=== PATIENT | female | born 1950 | race Caucasian/White ===

== ENCOUNTER → 2016-12-22 | Outpatient (CLI) | payer BC ==
[~2016-12-22] MED LIST: ASCO500T16 PO; LISI-725 PO; LORA-741 PO; VENL150C PO
[2016-12-22 14:00] LABS: ALT/SGPT 24 U/L (12-78); BLOOD UREA NITROGEN 21 mg/dl (7-18); BUN/CREATININE RATIO 22.5 (10-20); CALCIUM 9.9 mg/dl (8.5-10.1); CARBON DIOXIDE 24 mmol/L (21-32); CHLORIDE 105 mmol/L (98-107); CHOLESTEROL 199 mg/dl (0-200); CREATININE 0.93 mg/dl (0.60-1.20); GLUCOSE 102 mg/dl (70-99); POTASSIUM 4.5 mmol/L (3.5-5.1); SODIUM 141 mmol/L (136-145); TRIGLYCERIDES 198 mg/dl (0-150); VERY LOW DENSITY LIPOPROT CALC 40 mg/dl
[2016-12-22 14:01] LABS: ESTIMATED AVERAGE GLUCOSE 97 mg/dl; HA1C FLAG Normal (Normal)
[2016-12-22 14:09] LABS: ALB/GLOB RATIO 1.3 (0.9-2); ALKALINE PHOSPHATASE 89 U/L (45-117); AST/SGOT 23 U/L (15-37); CHOLESTEROL/HDL RATIO 4.7; HDL CHOLESTEROL 42 mg/dl
== END | disposition home or self-care (01) ==
LOC: C.LABSPEC 12:37
PROVIDERS: ATTEND Internal Medicine
DX: R73.9 Hyperglycemia, unspecified (principal); I10 Essential (primary) hypertension; E78.5 Hyperlipidemia, unspecified; E03.9 Hypothyroidism, unspecified; E55.9 Vitamin D deficiency, unspecified

== ENCOUNTER → 2017-02-23 | Outpatient (CLI) | payer BC ==
--- NOTE | 2017-02-23 16:25 | MAMMOGRAPHY REPORT ---
BILATERAL DIGITAL SCREENING MAMMOGRAM WITH CAD: 02/23/2017 CLINICAL HISTORY: Routine screening. TECHNIQUE: Bilateral CC and MLO views were obtained. Current study was also evaluated with a Comput er Aided Detection (CAD) system. COMPARISON: Comparison is made to exams dated: 02/19/2016 mammogram, 02/02/2015 mammogram, 01/31/2014 mammogram, 12/23/2011 mammogram, 06/03/2010 mammogram - [facility], and 07/13/2008. BREAST COMPOSITION: There are scattered areas of fibroglandular density in both breasts. FINDINGS: The parenchymal pattern is unchanged. There are stable intramammary lymph nodes in each upper outer quadrant. No developing mass, architectural distortion or cluster of suspicious microca lcifications is seen. IMPRESSION: ACR BI-RADS CATEGORY 2: BENIGN There is no mammographic evidence of malignancy. A 1 year screening mammogram is recommended. The p atient will receive written notification of the results. Approximately 10% of breast cancers are not detected with mammography. A negative mammographic repor t should not delay biopsy if a clinically suggestive mass is present. Sarahy Figueroa M.D. ay/:02/23/2017 15:38:18 Paint Striping Machine Operator: Fernando MULLER(Alfonso)([place]), [facility] letter sent: Normal 1/2 BI-RADS Code: ACR BI-RADS Category 2: Benign
== END | disposition home or self-care (01) ==
LOC: C.MAMM 08:20
PROVIDERS: ATTEND Internal Medicine
DX: Z12.31 Encounter for screening mammogram for malignant neoplasm of breast (principal)

== ENCOUNTER → 2017-03-05 | Outpatient (CLI) | payer BC | END | disposition home or self-care (01) | LOC: C.LABSPEC 14:38 | PROVIDERS: ATTEND Internal Medicine | DX: E03.9 Hypothyroidism, unspecified (principal) ==

== ENCOUNTER → 2017-06-23 | Outpatient (CLI) | payer BC ==
[2017-06-23 13:10] LABS: BASO % 0.8 %; BASO ABS # 0.03 K/uL (0-0.2); COMPLETE YES; EOS % 3.1 %; HEMATOCRIT 43.9 % (37-47); IG% 0.3 %; LYMPH % 32.5 %; LYMPH ABS # 1.26 K/uL (1.2-3.4); MEAN CELL VOLUME 86.9 fL (80-100); MEAN CORPUSCULAR HEMOGLOBIN 28.7 pg (25-34); MONO % 7.7 %; NEUT % 55.6 %; PLATELET COUNT 201 K/uL (130-400); RED BLOOD COUNT 5.05 M/uL (4.2-5.4); WHITE BLOOD COUNT 3.88 K/uL (4.8-10.8)
[2017-06-23 13:33] LABS: ALT/SGPT 30 U/L (12-78); AST/SGOT 26 U/L (15-37); BLOOD UREA NITROGEN 18 mg/dl (7-18); BUN/CREATININE RATIO 24.3 (10-20); CALCIUM 9.5 mg/dl (8.5-10.1); CARBON DIOXIDE 25 mmol/L (21-32); CHLORIDE 108 mmol/L (98-107); CHOLESTEROL 167 mg/dl (0-200); CREATININE 0.72 mg/dl (0.60-1.20); GLUCOSE 109 mg/dl (70-99); POTASSIUM 4.1 mmol/L (3.5-5.1); SODIUM 141 mmol/L (136-145)
[2017-06-23 13:35] LABS: ALB/GLOB RATIO 1.1 (0.9-2); ALKALINE PHOSPHATASE 92 U/L (45-117); CHOLESTEROL/HDL RATIO 4.9; HDL CHOLESTEROL 34 mg/dl; TRIGLYCERIDES 187 mg/dl (0-150); VERY LOW DENSITY LIPOPROT CALC 37 mg/dl
[2017-06-23 13:36] LABS: ESTIMATED AVERAGE GLUCOSE 100 mg/dl; HA1C FLAG Normal (Normal)
== END | disposition home or self-care (01) ==
LOC: C.LABSPEC 12:27
PROVIDERS: ATTEND Internal Medicine
DX: R73.9 Hyperglycemia, unspecified (principal); I10 Essential (primary) hypertension; E78.5 Hyperlipidemia, unspecified; E55.9 Vitamin D deficiency, unspecified

== ENCOUNTER → 2017-12-31 | Outpatient (CLI) | payer BC ==
[2017-12-31 13:28] LABS: BLOOD UREA NITROGEN 18 mg/dl (7-18); CALCIUM 9.7 mg/dl (8.5-10.1); CARBON DIOXIDE 26 mmol/L (21-32); CHOLESTEROL 158 mg/dl (0-200); CREATININE 0.81 mg/dl (0.60-1.20); GLUCOSE 98 mg/dl (70-99); POTASSIUM 4.1 mmol/L (3.5-5.1); SODIUM 136 mmol/L (136-145)
[2017-12-31 13:38] LABS: HEMOGLOBIN A1C 5.2 % (4.5-5.6); LDL CHOLESTEROL (DIRECT) 109 mg/dl
== END | disposition home or self-care (01) ==
LOC: C.LABSPEC 12:32
PROVIDERS: ATTEND Internal Medicine
DX: I10 Essential (primary) hypertension (principal); E78.5 Hyperlipidemia, unspecified; R73.9 Hyperglycemia, unspecified; E03.9 Hypothyroidism, unspecified; E55.9 Vitamin D deficiency, unspecified

== ENCOUNTER → 2018-02-25 | Outpatient (CLI) | payer BC ==
--- NOTE | 2018-02-25 14:56 | MAMMOGRAPHY REPORT ---
BILATERAL DIGITAL SCREENING MAMMOGRAM TOMOSYNTHESIS WITH CAD: 02/25/2018 CLINICAL HISTORY: Routine screening. Patient has no complaints. TECHNIQUE: Breast tomosynthesis in addition to standard 2D mammography was performed. Current study was also evaluated with a Computer Aided Detection (CAD) system. COMPARISON: Comparison is made to exams dated: 02/23/2017 mammogram, 02/19/2016 mammogram, 02/02/2015 m ammogram, 01/31/2014 mammogram, 12/23/2011 mammogram, and 06/03/2010 mammogram - [facility]. BREAST COMPOSITION: There are scattered areas of fibroglandular density in both breasts. FINDINGS: No suspicious masses, calcifications, or areas of architectural distortion are noted in ei ther breast. There has been no significant interval change compared to prior exams. IMPRESSION: ACR BI-RADS CATEGORY 1: NEGATIVE There is no mammographic evidence of malignancy. A 1 year screening mammogram is recommended. The pa tient will receive written notification of the results. Approximately 10% of breast cancers are not detected with mammography. A negative mammographic report should not delay biopsy if a clinically suggestive mass is present. Sara Mayo M.D. ah/:02/25/2018 09:40:10 Manager [place]: Soniya MULLER,Alfonso, M, [facility] letter sent: Normal 1/2 BI-RADS Code: ACR BI-RADS Category 1: Negative
== END | disposition home or self-care (01) ==
LOC: C.MAMM 08:21
PROVIDERS: ATTEND Internal Medicine
DX: Z12.31 Encounter for screening mammogram for malignant neoplasm of breast (principal)

== ENCOUNTER → 2018-06-28 | Outpatient (CLI) | payer BC ==
[~2018-06-28] MED LIST changes: -VENL150C PO; +VENL150C2 PO
[2018-06-28 18:54] LABS: BLOOD UREA NITROGEN 18 mg/dl (7-18); CALCIUM 9.7 mg/dl (8.5-10.1); CARBON DIOXIDE 25 mmol/L (21-32); CHOLESTEROL 164 mg/dl (0-200); CREATININE 0.74 mg/dl (0.60-1.20); GLUCOSE 98 mg/dl (70-99); LDL CHOLESTEROL (DIRECT) 115 mg/dl; POTASSIUM 4.3 mmol/L (3.5-5.1); SODIUM 139 mmol/L (136-145)
[2018-06-29 06:09] LABS: HEMOGLOBIN A1C 5.3 % (4.5-5.6)
== END | disposition home or self-care (01) ==
LOC: C.LABSPEC 17:21
PROVIDERS: ATTEND Internal Medicine
DX: E03.9 Hypothyroidism, unspecified (principal); R73.9 Hyperglycemia, unspecified; I10 Essential (primary) hypertension; E78.5 Hyperlipidemia, unspecified; E55.9 Vitamin D deficiency, unspecified

== ENCOUNTER 2024-05-06 08:30 | Observation (INO) ==
--- NOTE | 2024-04-07 12:38 | PAT Medication Instructions ---
Medication Instructions Date of Service April 07, 2024 Home Medications Medication Instructions Recorded epinephrine 0.3 mg/0.3 mL 0.3 mg (0.3 mL) IM Q4H PRN 02/21/23 injection, auto-injector (EpiPen anaphylaxis #2 ea 2-Faheem) lisinopril 20 mg tablet 20 mg PO QAM #90 tabs 07/20/23 levothyroxine 75 mcg tablet 75 mcg PO QAM #90 tabs 07/27/23 lorazepam 0.5 mg tablet 0.5 mg PO TID PRN Anxiety #90 tabs 07/27/23 buspirone 5 mg tablet 5 mg PO BID #180 tabs 09/17/23 semaglutide 0.25 mg or 0.5 mg (2 0.25 mg (0.368 mL) subcut .COMPLEX 04/01/24 mg/3 mL) subcutaneous pen injector weight loss #3 mL (Ozempic) vitamin E 268 mg (400 unit) capsule 400 unit PO QAM cholecalciferol (vitamin D3) 50 mcg (2,000 unit) capsule (Vitamin D3) 4,000 unit PO QAM epinephrine 0.3 mg/0.3 mL injection, auto-injector (EpiPen 2-Faheem) 0.3 mg (0.3 mL) IM Q4H PRN anaphylaxis lisinopril 20 mg tablet 20 mg PO QAM levothyroxine 75 mcg tablet 75 mcg PO QAM lorazepam 0.5 mg tablet 0.5 mg PO TID PRN Anxiety buspirone 5 mg tablet 5 mg PO BID B-complex with vitamin C 1 tab PO QAM calcium carbonate 600 mg PO QAM semaglutide 0.25 mg or 0.5 mg (2 mg/3 mL) subcutaneous pen injector (Ozempic) 0.25 mg (0.368 mL) subcut .COMPLEX weight loss rosuvastatin 10 mg tablet 10 mg PO QAM venlafaxine 150 mg capsule,extended release 24 hr 150 mg PO QAM Continue as directed epinephrine 0.3 mg/0.3 mL injection, auto-injector (EpiPen 2-Faheem) 0.3 mg (0.3 mL) IM Q4H PRN anaphylaxis (if needed) STOP taking 2 weeks before surgery vitamin E 268 mg (400 unit) capsule 400 unit PO QAM STOP taking 7 days before surgery semaglutide 0.25 mg or 0.5 mg (2 mg/3 mL) subcutaneous pen injector (Ozempic) 0.25 mg (0.368 mL) subcut .COMPLEX weight loss DO NOT take the morning of surgery cholecalciferol (vitamin D3) 50 mcg (2,000 unit) capsule (Vitamin D3) 4,000 unit PO QAM lisinopril 20 mg tablet 20 mg PO QAM B-complex with vitamin C 1 tab PO QAM calcium carbonate 600 mg PO QAM Take morning of surgery With a small sip of water, OTHERWISE NOTHING TO EAT OR DRINK AFTER MIDNIGHT: levothyroxine 75 mcg tablet 75 mcg PO QAM lorazepam 0.5 mg tablet 0.5 mg PO TID PRN Anxiety (if needed) buspirone 5 mg tablet 5 mg PO BID rosuvastatin 10 mg tablet 10 mg PO QAM venlafaxine 150 mg capsule,extended release 24 hr 150 mg PO QAM Take evening before surgery lorazepam 0.5 mg tablet 0.5 mg PO TID PRN Anxiety (if needed) buspirone 5 mg tablet 5 mg PO BID Other Notes If you have any questions please call us at [phone] or [phone] or [phone] or [phone]
--- NOTE | 2024-04-12 13:51 | Anesthesiology Consultation ---
Date of Service April 12, 2024 Assessment & Plan (1) Encounter for pre-operative examination: Chart Review Chart Review: Acceptable Risk for Surgery and Patient seen in Pre Admission Testing - Patient is NOT an ideal OPJ candidate (currently 23 hour obs) - Ozempic instructions: Patient takes on (Saturdays). Patient informed at PAT visit to stop 7 days prior to surgery- voiced understanding. Patient takes for weight loss. Last dose of Ozempic scheduled 04/23/24- will be off Ozempic x 13 days by DOS on 05/06/24 Per PAT appt on 04/12/24, no recent illness/disease exposures, illness related symptoms, or recent illness/disease positive tests. Will leave to surgeon's discretion if preop Covid testing needed Teaching & Discussion Pre-Anesthesia Teaching/Discussion Notes: Instructed NPO after midnight before surgery,except medications with 15 cc of water. Medication instructions provided according to the PAT guidelines. History Surgery Operation Date: 05/06/24 10:10 Proposed Procedures p Left Total Knee Arthroplasty - Aaron Recinos DO Height/Weight Height: 5 ft 3 in Weight: 90.8 kg Allergies Allergy/AdvReac Type Severity Reaction Status Date / Time Iodinated Contrast Media Allergy Intermediate severe Verified 04/12/24 13:44 rash Medications Home Medications Medication Instructions Recorded Confirmed Last Taken vitamin E 268 mg (400 unit) capsule 400 unit PO QAM 06/30/18 04/07/24 07/16/18 cholecalciferol (vitamin D3) 50 4,000 unit PO QAM 01/22/23 04/07/24 Unknown mcg (2,000 unit) capsule (Vitamin D3) epinephrine 0.3 mg/0.3 mL 0.3 mg (0.3 mL) IM Q4H PRN 02/21/23 04/07/24 Unknown injection, auto-injector (EpiPen anaphylaxis #2 ea 2-Faheem) lisinopril 20 mg tablet 20 mg PO QAM #90 tabs 07/20/23 04/07/24 Unknown levothyroxine 75 mcg tablet 75 mcg PO QAM #90 tabs 07/27/23 04/07/24 Unknown lorazepam 0.5 mg tablet 0.5 mg PO TID PRN Anxiety #90 tabs 07/27/23 04/07/24 Unknown buspirone 5 mg tablet 5 mg PO BID #180 tabs 09/17/23 04/07/24 Unknown B-complex with vitamin C 1 tab PO QAM 04/01/24 04/07/24 Unknown calcium carbonate 600 mg PO QAM 04/01/24 04/07/24 Unknown semaglutide 0.25 mg or 0.5 mg (2 0.25 mg (0.368 mL) subcut .COMPLEX 04/01/24 04/07/24 Unknown mg/3 mL) subcutaneous pen injector weight loss #3 mL (Ozempic) rosuvastatin 10 mg tablet 10 mg PO QAM 04/07/24 04/07/24 Unknown venlafaxine 150 mg 150 mg PO QAM 04/07/24 04/07/24 Unknown capsule,extended release 24 hr Past Medical History Medical History (Updated 04/13/24 @ 10:38 by Edita Velazquez PA-C) Anxiety 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" (had bone marrow biopsy) - Resolved on own incidentally- no further issues since 2010 - No longer follows with heme Degenerative arthritis of knee, bilateral Depression GERD without esophagitis well controlled and stable Hiatal hernia History of COVID-19 06/2022--mild symptoms, no symptoms now History of fracture of finger 02/2023 from syncopal episode--splinted/resolved- left fifth digit - still unable to fully extend History of syncope 02/15/2023--pt states she was worked up at the [facility]; also had event monitor/ECHO, unknown cause- no issues since that time Hyperlipidemia Hypertension Hypothyroidism Osteopenia Exercise / Class Metabolic Activity III < 4 Walking/Shop/Light housework (one flight of stairs- no chest pain, mild SOB (goes slow due to knee pain) ) Past Family History Family History Mother Palpitations Father Myocardial infarction Malignant pleural mesothelioma Brother Lung cancer Sister Cervix cancer Bladder cancer Other No family history of adverse response to anesthesia Denies family history of Ovarian cancer Prostate cancer Breast cancer Colorectal cancer Past Surgical History Surgical History H/O dilation and curettage H/O shoulder replacement History of abdominoplasty History of colonoscopy History of esophagogastroduodenoscopy (EGD) History of hysteroscopy History of lymph node excision 2010 - EXCISION; SUBSEQUENT BLEEDING/REPAIR History of repair of rotator cuff RIGHT 2000 History of reverse total replacement of right shoulder joint 2017 Hx of ectopic RUPTURED Past Anesthesia History No Hx of Anesthesia Complications and No Family Hx of Anesthesia Complications History of PONV No Hx of PONV and No Hx of Motion Sickness Social History Smoking Status: Former smoker Do You Dip or Chew Tobacco: No Smoking End Date: quit 40+yrs ago Hx Alcohol Use: Yes (wine cooler) Alcohol type: other alcohol intake frequency: holidays/special occasions only Hx Substance Use: No substance use type: does not use Review of Systems Hx of snoring- no witnessed apnea - no hx of sleep study Patient denies chest pain, shortness of breath at rest, cough, wheezing, palpitations. No hx of seizures, stroke, VT. No hx of blood clots or blood transfusions Physical Exam Vital Signs VITALS BP 131/69 P 94 TEMP 97.9 SP02 95% RESP 16 Constitutional no acute distress ENMT Mouth: no TMJ clicking Thyromental Distance: > or= 3.5 Finger Breadths (3.5) Mallampati Class: I (smaller airway) Missing molars Neck + short neck, + thick neck and + limited neck extension Respiratory normal respiratory effort; no respiratory distress Auscultation: lungs clear to auscultation bilaterally; no wheezes Cardiovascular Rate/Rhythm: regular rate and regular rhythm Heart Sounds: no murmur Vessels: no carotid bruit Musculoskeletal Spine: + pain with cervical ROM (mild) Extremities: extremities normal to inspection Psychiatric Orientation: alert Lab Results Anesthesia Preop Results Results Anesthesia Widget: WBC 5.25 K/ul (4.8-10.8) 04/12/24 Hgb 13.3 g/dl (12.0-16.0) 04/12/24 Hct 40.9 % (37.0-47.0) 04/12/24 Plt 176 K/uL (130-400) 04/12/24 Na 138 mmol/L (136-145) 04/12/24 K 3.8 mmol/L (3.5-5.1) 04/12/24 Cl 104 mmol/L (98-107) 04/12/24 CO2 27 mmol/L (21-32) 04/12/24 BUN 29 mg/dl (6-23) H 04/12/24 Creat 0.68 mg/dl (0.6-1.2) 04/12/24 Glucose Level 132 mg/dl (70-99(Fasting)) H 04/12/24 PT 10.4 Seconds (9.0-12.0) 04/12/24 PTT 25 Seconds (21-31) 04/12/24 INR 1.0 (0.9-1.1) 04/12/24 Blood Type O Positive 04/12/24 Antibody Screen NEGATIVE 04/12/24 Testing Electrocardiogram Date: 04/12/24 Findings: + NSR @ (91bpm) Normal EKG per cardio Chest X-Ray Date: 09/23/23 FINDINGS: Right shoulder arthroplasty is incidentally noted. Right upper lobe airspace opacity on chest radiograph August 20, 2023 has resolved. A calcified granuloma within the right lung is present. There is no pneumothorax or pleural effusion. No new sites of consolidation are present. Cardiac size is normal. Mediastinal contours are normal. IMPRESSION: No acute cardiopulmonary findings. Resolution of the right upper lobe pneumonia on prior chest radiograph. Echocardiogram Date: 05/08/23 EF: 60-65% LV Function: normal RWMA: + none Other Findings: + LVH (moderate/concentric) and + diastolic dysfunction (Type I ) Mild AR Mild MR Other Testing Event monitor 04/09/23= Patient monitored for 26 days. Rhythm was sinus throughout. Average HR 83 bpm (range 50 bpm to 120 bpm). No atrial or ventricular ectopy noted. No dysrhythmias. Symptoms of dizziness, heart racing or lightheadedness occurred during sinus rhythm at rates ranging between 72 bpm and 111 bpm, no associated ectopy or dysrhythmias.
[~2024-05-06 08:30] MED LIST changes: -ASCO500T16 PO; +BUPIVACAINE 0.5 % 5 MG/1 ML PF 10ML VIAL ONE; +KETAMINE HCL 10MG/ML SYR ONE; -LISI-725 PO; -LORA-741 PO; +MIDAZOLAM HCL 1 MG/ML 2ML VIAL ONE; +ROPIVACAINE 0.5% 5 MG/ML 30 ML VIAL ONE; -VENL150C2 PO
[2024-05-06] MEDS ORDERED: GLYCOPYRROLATE 0.2 MG/ML VIAL ONE (08:33)
[2024-05-06] MEDS ORDERED: LIDOCAINE 2% 2 ML VIAL/AMP(20MG/ML) INFIL ONE (08:33)
[2024-05-06] MEDS ORDERED: PROPOFOL IV EMULSION 10 MG/ML 100 ML VIAL IV ONE (08:33)
[2024-05-06] MEDS ORDERED: ONDANSETRON INJ 2 MG/ML 2 ML VIAL ONE (08:33)
--- NOTE | 2024-05-06 09:17 | History & Physical Bridge Note ---
Date of Service May 06, 2024 History & Physical Bridge Note I have examined the patient, reviewed the History & Physical and in the interval since the performance of the History & Physical I have noted the following changes of clinical significance: no changes noted
[2024-05-06] MEDS: LR 500ML BOLUS, THEN 15ML/HR IV SCH (09:18)
[2024-05-06] MEDS: GABAPENTIN 300 MG CAP PO SCH (09:20)
[2024-05-06] MEDS: dexAMETHasone**PF** 10 MG/ML VIAL IV SCH (09:20)
[2024-05-06] MEDS: FAMOTIDINE 20 MG TAB PO SCH (09:20)
[2024-05-06] MEDS: LR 60ML/HR IV SCH (09:20)
[2024-05-06] MEDS: ACETAMINOPHEN 500 MG TAB PO SCH ×2 (09:20→17:48)
[2024-05-06] MEDS ORDERED: ONDANSETRON INJ 2 MG/ML 2 ML VIAL IV PRN ×2 (09:51→13:52)
[2024-05-06] MEDS ORDERED: ATROPINE SULFATE 0.1 MG/ML 10ML SYR IV PRN (09:51)
[2024-05-06] MEDS ORDERED: fentaNYL citrate PF 100 MCG/2 ML VIAL IV PRN (09:51)
[2024-05-06] MEDS ORDERED: ePHEDrine sulfate 50 MG/ML AMP IV PRN (09:51)
[2024-05-06] MEDS: TRANEXAMIC ACID 1,000 MG **IV Pre-op IV SCH (09:56)
[2024-05-06] MEDS: ceFAZolin 2000MG 2,000 MG/15 ML SYR IV SCH ×2 (10:15→17:48)
[2024-05-06] MEDS: ORTHO JOINT ANESTHETIC ONE (10:44)
[2024-05-06] MEDS: TRANEXAMIC ACID 1,000 MG **IV Intra-op IV SCH (11:00)
[2024-05-06] MEDS: ROPIV 0.5% 246mg, Ketorolac 30mg, EPINEPHrine 0.5mg in NSS INFIL SCH (11:05)
--- NOTE | 2024-05-06 11:05 | Operative Report ---
PG Post Operative Report Pre & Post Diagnosis Operation Date: 05/06/24 10:00 Pre-Op Diagnosis: Osteoarthritis of left knee Postop diagnosis: Osteoarthritis of the left knee I identified the patient and participated in the time-out.: Yes Procedure Operation Date: 05/06/24 10:00 Actual Procedures p Left Total Knee Arthroplasty(Left) - Aaron Recinos DO Surgeon Aaron Recinos DO Veterinary Technician Instructor Aaron Davis PA-C Estimated Blood Loss 30 Findings Consistent with Post-Op Diagnosis Specimens Left femoral tibial bone Description of Procedure Implants used: I used a Dami Persona total knee arthroplasty system with a size 6 narrow femur, C tibia, 28 oval patella, and a size 10 medial congruent polyethylene bearing. All components were cemented in place with Biomet cement. Margo arrived [facility] for the above procedure. She was seen in the preoperative holding area and the operative extremity was identified and signed. She was given a preoperative antibiotic, TXA, a spinal anesthetic and an adductor nerve block. She was taken back to the operating room and laid on the table in supine position. She was given basic sedation. The operative knee was then prepped and draped in sterile fashion. A timeout was done, and the patient and the operative extremity was properly identified. A midline incision was made directly over the patella. Dissection was taken down to the extensor mechanism. A subvastus arthrotomy was used. The medial retinaculum was released and the fat pad was mostly excised. The knee was flexed and the ACL, PCL, and meniscus were removed. A drill was sent down the center of the femoral canal followed by an intramedullary felicia. Off that felicia a distal femoral cutting block was placed. 9 mm was resected off the distal femur at 5 of valgus. A posterior referencing AP sizing guide was then placed on the distal femur. The femur measured to be a size 6. 2 drill holes were placed in 3 of external rotation. A 4-in-1 cutting block was then impacted into place. Anterior, posterior, and chamfer cuts were then made. The proximal tibia was then exposed. An external tibial alignment guide was placed. A tibial cut guide was then anchored in place and the proximal tibia was then resected. The posterior aspect of the knee was then opened up and any additional meniscus fragments and osteophytes were removed. The tibia measured to be a size C. The tibial plate was then placed in the appropriate rotation and the tibia was drilled and punched. Trial components were then placed. I used a size 10 medial congruent polyethylene insert. The knee was brought through a full range of motion and felt to be stable. The peg holes for the femoral component were then drilled. The patella was then everted and 9 mm was resected off the posterior aspect of the patella. The patella measured to be a size 28 oval. 3 peg holes were then drilled. A trial patella was placed. The knee was once again brought through a full range of motion and felt to be stable. Trial components were then removed. The surrounding soft tissues were injected with 100 cc of an orthopedic pain control cocktail. All components were then cemented into place with Biomet cement. The final polyethylene insert was then snapped into place. Once cement was dry the tourniquet was deflated. Hemost asis was obtained. A dilute betadyne lavage was then done for 3 minutes. The joint was then irrigated with normal saline solution. The subvastus arthrotomy was then closed with #1 Vicryl suture. The skin was closed with 2-0 Vicryl, 3- 0V lock suture, and hal. A soft compressive dressing was placed. She was then transferred to a hospital bed and taken to the postanesthesia care unit in stable condition. She tolerated the procedure well. Aaron Davis PA-C, was present for the entire procedure. He was critical for patient positioning, prepping, draping, retraction exposure, wound closure and application of sterile dressing. I attest to the content of the Intraoperative Record and any orders documented therein. Any exceptions are noted below.
--- NOTE | 2024-05-06 11:40 | XRay Report ---
TWO VIEWS LEFT KNEE CLINICAL HISTORY: Postoperative examination. FINDINGS: AP and crosstable lateral portable views of the left knee are obtained. A left knee arthrop lasty is in near anatomic alignment. There has been undersurface remodeling of the patella. No acute fracture is seen. There are expected postoperative changes around the knee including skin clips, soft tissue edema, and subcutaneous gas. IMPRESSION: Expected postoperative changes status post left knee arthroplasty. No acute fracture is s een. ACT 112: Negative or not required by law. Electronically signed by: Joce Serrano M.D. 05/06/2024 11:39 AM
[2024-05-06] MEDS ORDERED: MAGNESIUM HYDROXIDE SUSP 30 ML UDC PO PRN (13:52)
[2024-05-06] MEDS ORDERED: EPINEPHrine ADULT AUTO-INJECT 0.3 MG SYR IM PRN (13:52)
[2024-05-06] MEDS ORDERED: NALOXONE HCL 0.4 MG/1 ML VIAL/CARP IV PRN (13:52)
[2024-05-06] MEDS ORDERED: bisacodyL 10 MG SUPP PR PRN (13:52)
[2024-05-06] MEDS ORDERED: HYDROmorphone INJ 0.5 MG/0.5 ML SYR IV PRN (13:52)
[2024-05-06] MEDS ORDERED: LORazepam 0.5 MG TAB PO PRN (13:52)
[2024-05-06] MEDS ORDERED: METOCLOPRAMIDE HCL INJ 5 MG/ML 2 ML VIAL IV PRN (13:52)
[2024-05-06] MEDS ORDERED: EPINEPHrine INJ 1 MG/ML AMP IM PRN (14:12)
[2024-05-06] MEDS: SODIUM CHLORIDE 0.9% 1,000 ML IV SCH (14:37)
[2024-05-06] MEDS: KETOROLAC TROMETHAMINE 15 MG/ML VIAL IV SCH (15:43)
[2024-05-06] MEDS: ASPIRIN 81 MG ECTAB PO SCH (20:09)
[2024-05-06] MEDS: busPIRone 5 MG TAB PO SCH (20:10)
[2024-05-06] MEDS: DOCUSATE SODIUM 100 MG CAP PO SCH (20:11)
[2024-05-06] MEDS: SENNA 8.6 MG TAB PO SCH (20:12)
[2024-05-07] MEDS: LEVOTHYROXINE SODIUM 75 MCG TABLET PO SCH (05:42)
[2024-05-07] MEDS: MULTIVITAMIN TAB PO SCH (09:03)
[2024-05-07] MEDS: VENLAFAXINE HCL XR 150 MG CAPXR PO SCH (09:03)
[2024-05-07] MEDS: ROSUVASTATIN CALCIUM 10 MG TAB PO SCH (09:03)
[2024-05-07] MEDS: lisinopril 20 MG TAB PO SCH (09:03)
[2024-05-07] MEDS: dexAMETHasone 4 MG TAB PO SCH (09:03)
[2024-05-07] MEDS: oxyCODONE HCL IR 5 MG TAB (IMMEDIATE RELEASE) PO PRN (10:05)
--- NOTE | 2024-05-07 10:16 | Orthopedic Progress Note ---
Date of Service May 07, 2024 Assessment & Plan (1) Status post left knee replacement: Overall she is doing very well and happy with her progress. She is not having much pain in the left knee. She will be seen by physical therapy today for ambulation and range of motion exercises. The therapist can change her dressing after physical therapy. She can be discharged home later today. She is on aspirin for DVT prophylaxis. She will follow-up with orthopedics in 2 weeks. Subjective Mildly was seen and examined at bedside this morning. Overall she is doing very well. She is not having much pain in the left knee. She has been up and walking with physical therapy. She has no complaints.. Review of Systems All systems reviewed & are unremarkable except as noted in HPI & below. Physical Exam On physical examination of the left knee, the dressing is clean and dry. Her leg is out full extension. She has active dorsiflexion plantarflexion of her left ankle.. Results & Data Results & Data Laboratory Results . Diagnostic Findings Postoperative x-rays of the left knee show the prosthesis to be in anatomic alignment without any evidence of fracture complication, or loosening.. PG Care Time/CCT Total # of Minutes Spent Total Time Spent with Patient: Total time spent is greater than 50% in coordination of care (as documented) at patient's floor/unit and/or counseling patient: Coding Level of Care Code 75117 Post Operative Follow-Up Diagnoses Status post left knee replacement Z96.652
--- NOTE | 2024-05-07 10:17 | Discharge Summary ---
Date of Service May 07, 2024 Principal Diagnosis Same as "Discharge Diagnosis" noted below under Discharge Instructions. Discharge Exam On physical examination of the left knee, the dressing is clean and dry. Her leg is out full extension. She has active dorsiflexion plantarflexion of her left ankle.. Discharge Data Procedures Performed Operation Date: 05/06/24 10:00 Actual Procedures p Left Total Knee Arthroplasty(Left) - Aaron Recinos DO Ordered Studies 05/06/24 05:00 US - OR guided needle placemen Routine Hospital Course (1) Status post left knee replacement: On May 06, 2024 Margo arrived at [facility] and underwent a left knee replacement without complication. She had a spinal anesthetic. Postoperatively she was started on aspirin for DVT prophylaxis and transferred to the general orthopedic floors. Her hospital course was uneventful. On postop day #1, her vital signs were stable and her pain was well-controlled. She was able to participate well with physical therapy doing ambulation and range of motion exercises. She was then discharged home. She will follow-up with orthopedics in 2 weeks. PG Care Time/CCT Total # of Minutes Spent Total Time Spent with Patient: Total time spent is greater than 50% in coordination of care (as documented) at patient's floor/unit and/or counseling patient: Discharge Plan Discharge Items Patient Disposition: Home - Self-Care Reason For Visit: Degenerative Joint Disease Left Knee Discharge Diagnosis: Left knee replacement Activity: Per Instructions section Non-emergency contact: Surgeon Call non-emergency contact if: your wound has increased redness and your wound has increased drainage Follow-up/Referrals: Mireya Upton MD [Primary Care Provider] - Diet: Regular Addtl Attending Provider Instructions: Activity and Therapy Recommendations: * If you are using [facility] then therapy will be provided at your home until they feel you have accomplished all of your goals. * If you are using [facility] then Physical Therapy will be provided until they feel you are ready to start Outpatient Physical Therapy. * If you are not using home therapy then Outpatient Physical Therapy should start about 3-5 days from your day of surgery. Therapy will last about 6-10 weeks * It is important not to put a pillow under your knee when you are relaxing or sleeping. It is just as important to make sure you are getting your knee perfectly straight as it is to regain your knee bend. * You were shown a series of exercises in the hospital. Do these exercises three times each day including the exercises you were shown in physical therapy. * Get up and walk several times each day. For the first four weeks, try not to stand or walk for more than one hour at a time. If you do stand or walk for more than one hour, you will not hurt anything, but your leg will likely swell. * As you feel comfortable, you may change from the walker or crutches to a cane and then to independent walking. Medications: * Narcotic You will likely be sent home from the hospital with a prescription for the narcotic pain medication that worked best throughout your stay. * Cefadroxil -take the antibiotic twice a day for 10 days to help prevent infection. * Aspirin Most patients will be required to take Aspirin 81mg twice a day for 6 weeks after surgery. This is obtained [id number] and a prescription is not necessary. * Other medications may be prescribed for specific circumstances. If you have any questions, please call the office at . * Resume previous home medications unless otherwise instructed TEDs/Elastic Stockings: The white elastic stockings help limit swelling and prevent blood clots from forming in your legs.~ The more you wear them, the more they work. Wear them for six weeks. Dressing Care: The dressing can be changed after physical therapy on postop day #1. Daily dry dressing changes for a few days, especially if the incision is still draining some. If the incision is not draining then you may leave the hal open to air. If there is a little bit of drainage or if the hal are getting stuck on your clothing then cover the incision with a dry dressing. The hal will be removed at your 2 week follow-up appointment. Showering: You may shower 5 days from the day of surgery as long as the incision is no longer draining. You may shower with the hal exposed. Let soapy water run over the hal and pat them dry. Do not scrub or soak the incision. Things To Watch For: * Drainage from the incision site that occurs more than one week after your surgery. * Increased redness at the incision site. * Fever above 102 degrees Fahrenheit. * Unusual chest pain or shortness of breath. * Call [facility] at with any of the above problems Follow-Up Visit: Follow-up with Dr. Recinos's PA (Aaron Davis) 2-3 weeks after your day of surgery. He will remove your hal and answer any questions. If you have any additional questions or concerns, Dr Recinos is usually in the office at the same time and will be available An appointment was probably scheduled when you signed-up for surgery in the office. If you have any questions call Office Instructions: More detailed instructions as well as Frequently Asked Questions were provided in a folder by our office when you signed-up for surgery. Please review these instructions when you get home. If you have any further questions or concerns, please feel free to call the office at [phone] Pending Studies at Discharge: No Stand-Alone Forms: [facility] [employer], Smoking Cessation Medications and DC Order Prescriptions: New oxycodone 5 mg Tablet 5 mg PO Q4H PRN (Reason: pain) Qty: 30 0RF cefadroxil 500 mg capsule 500 mg PO BID 10 Days Qty: 20 0RF aspirin 81 mg Tablet,Delayed Release (Dr/Ec) 81 mg PO BID 42 Days Qty: 0 0RF Continued lisinopril 20 mg tablet 20 mg PO QAM Qty: 90 3RF buspirone 5 mg tablet 5 mg PO BID Qty: 180 3RF lorazepam 0.5 mg tablet 0.5 mg PO TID PRN (Reason: Anxiety) Qty: 90 0RF cholecalciferol (vitamin D3) [Vitamin D3] 50 mcg (2,000 unit) capsule 4,000 unit PO QAM levothyroxine 75 mcg tablet 75 mcg PO QAM Qty: 90 3RF calcium carbonate 600 mg calcium (1,500 mg) tablet 600 mg PO QAM B-complex with vitamin C Tablet 1 tab PO QAM Ozempic 0.25 mg or 0.5 mg (2 mg/3 mL) pen injector 0.25 mg subcut .COMPLEX Qty: 3 0RF Patient Comments: takes on saturdays Rx Instructions: 0.25 mg subcutaneously once weekly x 4 weeks then increase to 0.5mg weekly injection vitamin E 400 unit Capsule 400 unit PO QAM epinephrine [EpiPen 2-Faheem] 0.3 mg/0.3 mL auto-injector 0.3 mg IM Q4H PRN (Reason: anaphylaxis) Qty: 2 0RF venlafaxine [Effexor XR] 150 mg capsule,extended release 24hr 150 mg PO QAM rosuvastatin 10 mg tablet 10 mg PO QAM Discharge Orders: Discharge Order (Routine); Ordered 05/07/24 Ordered By: Aaron Recinos Admission Data Admit Date/Time: 05/06/24 11:28 Attending Provider: Aaron Recinos Admit Provider: Aaron Recinos Primary Care Provider: Mireya Upton
== END 2024-05-07 12:00 | disposition home or self-care (01) ==
LOC: 3E 08:30 → ASU 08:30
DX: Z79.899 Other long term (current) drug therapy; I10 Essential (primary) hypertension; E78.5 Hyperlipidemia, unspecified; Z91.041 Radiographic dye allergy status; M17.12 Unilateral primary osteoarthritis, left knee; Z79.890 Hormone replacement therapy; F32.9 Major depressive disorder, single episode, unspecified; F41.9 Anxiety disorder, unspecified; K44.9 Diaphragmatic hernia without obstruction or gangrene; Z87.891 Personal history of nicotine dependence; K21.9 Gastro-esophageal reflux disease without esophagitis